=== PATIENT | male | born 1990 | race Caucasian/White ===

== ENCOUNTER 2018-03-09 04:13 | Emergency (ER) | payer OTHER ==
[~2018-03-09] VITALS: Ht 160 cm; Wt 68.0 kg
[2018-03-09 06:19] VITALS: BP 133/79
[2018-03-09 08:16] LABS: *BARBITURATES SCREEN URINE NEGATIVE (NEGATIVE); *BENZODIAZEPINES SCREEN URINE NEGATIVE (NEGATIVE); CANNABINOID URINE SCREEN NEGATIVE (NEGATIVE)
[2018-03-09 08:17] LABS: *AMPHETAMINES SCREEN URINE NEGATIVE (NEGATIVE); *COCAINE SCREEN URINE NEGATIVE (NEGATIVE); METHADONE URINE SCREEN NEGATIVE (NEGATIVE); OPIATES URINE SCREEN NEGATIVE (NEGATIVE); PHENCYCLIDINE URINE SCREEN NEGATIVE (NEGATIVE)
== END 2018-03-09 06:22 | disposition left against medical advice (07) ==
LOC: EDBD 04:13 → ER 04:13
DX: Z04.1 Encounter for examination and observation following transport accident (principal); F12.10 Cannabis abuse, uncomplicated
CPT/HCPCS: 36415; 80305; 99283; G0482